=== PATIENT | female | born 1940 | race Caucasian/White ===

== ENCOUNTER 2024-11-07 19:02 | Emergency (ER) | payer OTHER ==
[~2024-11-07] VITALS: Ht 157.5 cm; Wt 61.2 kg
[2024-11-07] MEDS ORDERED: ACETAMINOPHEN ES 500 MG TABLET ONE (20:04)
[2024-11-07] MEDS: ACETAMINOPHEN ES 500 MG TABLET PO ONE (20:07)
[2024-11-07] MEDS ORDERED: HYDR-4303 PO (21:43)
[2024-11-07] MEDS ORDERED: IBUP-1490 PO (21:43)
[2024-11-07] MEDS ORDERED: KETOROLAC TROMETHAMINE INJ 30 MG/ML VIAL ONE (22:00)
[2024-11-07] MEDS: KETOROLAC TROMETHAMINE INJ 30 MG/ML VIAL IM ONE (22:06)
[2024-11-07 22:34] VITALS: BP 150/70; TEMP 98.2; O2SAT 97
== END 2024-11-07 22:34 | disposition home or self-care (01) ==
LOC: ER 19:07
DX: S83.92XA Sprain of unspecified site of left knee, initial encounter (principal); S93.401A Sprain of unspecified ligament of right ankle, initial encounter; I10 Essential (primary) hypertension; E11.9 Type 2 diabetes mellitus without complications; Z88.2 Allergy status to sulfonamides; Z60.2 Problems related to living alone; W01.0XXA Fall on same level from slipping, tripping and stumbling without subsequent striking against object, initial encounter; Y93.89 Activity, other specified; Y92.89 Other specified places as the place of occurrence of the external cause; Y99.8 Other external cause status
CPT/HCPCS: 99284; 96372; 73610; 73564; J1885